=== PATIENT | female | born 1965 | race Two or more races ===

== ENCOUNTER 2023-11-02 19:44 | Inpatient (IN) | payer MEDICAID, OTHER ==
[~2023-11-02] VITALS: Ht 165.1 cm; Wt 71.9 kg
[2023-11-02 20:32] VITALS: PULSE 77; RESP 17; O2SAT 92
[2023-11-02 21:23] LABS: Basophils # (auto) 0 10 ^3/uL (0-0.2); Basophils % (auto) 0.3 % (0.0-2.0); Eosinophils # (auto) 0 10 ^3/uL (0-0.8); Eosinophils % (auto) 0.5 % (0.0-7.0); Hematocrit 42.4 % (36.0-46.0); Hemoglobin 14.2 g/dL (12.2-16.2); Lymphocytes # (auto) 1.6 10 ^3/uL (0.4-5.4); Lymphocytes % (auto) 19.8 % (10.0-50.0); Mean Corpuscular Hemoglobin 29.2 pg (28.0-32.0); Mean Corpuscular Hgb Conc. 33.6 g/dL (32.0-36.0); Mean Corpuscular Volume 87.1 fL (80.0-100.0); Monocytes # (auto) 0.6 10 ^3/uL (0-1.3); Monocytes % (auto) 6.9 % (0.0-12.0); Neutrophils # (auto) 5.9 10 ^3/uL (1.6-8.6); Neutrophils % (auto) 72.5 % (37.0-80.0); Red Blood Cells 4.87 10^6/uL (4.0-5.20); Red Cell Distribution Width 14.1 % (11.8-14.3); White Blood Cell 8.1 10^3/uL (4.4-10.8)
[2023-11-02 21:33] LABS: Alanine Aminotransferase 23 U/L (7-40); Albumin 4.8 g/dL (3.2-4.8); Alkaline Phosphatase 87 U/L (46-116); Anion Gap 10 (5-15); Aspartate Aminotransferase < 8 U/L (13-40); Bilirubin, Total 0.3 mg/dL (0.2-1.0); Blood Urea Nitrogen 18 mg/dL (9-23); Calcium 9.6 mg/dL (8.5-10.1); Carbon Dioxide 23 mmol/L (20-30); Chloride 99 mmol/L (98-107); Glucose 128 mg/dL (74-106); Sodium 132 mmol/L (136-145); Total Protein 7.4 g/dL (5.7-8.2)
[2023-11-02] MEDS ORDERED: LACTATED RINGER'S 1,000 ML IV ONE (22:00)
[2023-11-02] MEDS ORDERED: METOCLOPRAMIDE HCL 5MG/ml INJ 2ml VIAL IV ONE (22:00)
[2023-11-02] MEDS ORDERED: KETOROLAC TROMETH 30 MG/ML 1ML VIAL IV ONE (22:00)
[2023-11-02] MEDS ORDERED: METOCLOPRAMIDE HCL 5MG/ml INJ 2ml VIAL ONE (22:51)
[2023-11-02] MEDS ORDERED: KETOROLAC TROMETH 30 MG/ML 1ML VIAL ONE (22:52)
[2023-11-03 01:06] LABS: Urine Bacteria FEW /hpf (None Seen); Urine Blood Negative /uL (Negative); Urine Clarity HAZY (Clear); Urine Color Yellow (Yellow); Urine Hyaline Cast MANY /lpf (0 - 2); Urine Mucus FEW (None Seen); Urine Protein, UAD TRACE (Negative); Urine Specific Gravity 1.019 (1.001-1.035); Urine Urobilinogen Normal (Negative); Urine WBC 108 /hpf (0 - 5); Urine pH 5.5 (5.0-8.0)
[2023-11-03 01:10] VITALS: PULSE 74; RESP 18; O2SAT 96
[2023-11-03] MEDS ORDERED: PIPERACILLIN-TAZOB 3.375GM 100 ML IV ONE (01:15)
[2023-11-03] MEDS ORDERED: ALBUMIN 25% 100 ML IV ONE ×2 (01:15→03:10)
[2023-11-03] MEDS ORDERED: LACTATED RINGER'S 1,000 ML IV ONE (01:15)
[2023-11-03 07:35] VITALS: RESP 18; O2SAT 96
[2023-11-03] MEDS ORDERED: ACETAMINOPHEN 325 MG TAB PO ONE ×2 (08:45→08:55)
[2023-11-03] MEDS: SODIUM CHLORIDE 0.9% 1,000 ML IV SCH ×2 (10:00→18:20)
[2023-11-03] MEDS ORDERED: ONDANSETRON HCL 4 MG/2 ML VIAL IV PRN (10:00)
[2023-11-03] MEDS ORDERED: DOCUSATE SOD 100 MG CAP PO PRN (10:00)
[2023-11-03] MEDS ORDERED: MORPHINE SULFATE INJ 2 MG/ml SYRG IV PRN (10:00)
[2023-11-03 11:06] LABS: Creatinine, Urine 152.92 mg/dL (30.0-125.0)
[2023-11-03 15:15] LABS: Magnesium 2.1 mg/dL (1.6-2.6)
[2023-11-03 15:16] LABS: Phosphorus 3.5 mg/dL (2.4-5.1)
[2023-11-03 20:00] VITALS: PULSE 86; RESP 11; O2SAT 94
[2023-11-04] VITALS (8 sets, daily range): BP systolic 118–132; BP diastolic 62–68; PULSE 69–85; RESP 16–18; TEMP 97.3–98; O2SAT 93–100
[2023-11-04] MEDS: ACETAMINOPHEN 325 MG TAB PO PRN ×2 (01:00→14:21)
[2023-11-04] MEDS: SODIUM CHLORIDE 0.9% 1,000 ML IV SCH ×3 (03:40→19:20)
[2023-11-04] MEDS ORDERED: TELM80TA3 PO (04:20)
[2023-11-04] MEDS ORDERED: AMLO1TAB22 PO (04:20)
[2023-11-04] MEDS: LEVOTHYROXINE SODIUM 50 MCG TAB PO SCH (05:59)
[2023-11-04 06:23] LABS: Basophils # (auto) 0 10 ^3/uL (0-0.2); Basophils % (auto) 0.6 % (0.0-2.0); Eosinophils # (auto) 0.1 10 ^3/uL (0-0.8); Eosinophils % (auto) 1.8 % (0.0-7.0); Hematocrit 38.3 % (36.0-46.0); Hemoglobin 12.6 g/dL (12.2-16.2); Lymphocytes # (auto) 1.5 10 ^3/uL (0.4-5.4); Lymphocytes % (auto) 37.8 % (10.0-50.0); Mean Corpuscular Hemoglobin 28.8 pg (28.0-32.0); Mean Corpuscular Hgb Conc. 32.9 g/dL (32.0-36.0); Mean Corpuscular Volume 87.5 fL (80.0-100.0); Monocytes # (auto) 0.3 10 ^3/uL (0-1.3); Monocytes % (auto) 7.9 % (0.0-12.0); Neutrophils # (auto) 2.1 10 ^3/uL (1.6-8.6); Neutrophils % (auto) 51.9 % (37.0-80.0); Nucleated Red Blood Cells % 0.1 %; Red Blood Cells 4.38 10^6/uL (4.0-5.20); Red Cell Distribution Width 14.2 % (11.8-14.3)
[2023-11-04 06:41] LABS: Alanine Aminotransferase 15 U/L (7-40); Albumin 4.2 g/dL (3.2-4.8); Alkaline Phosphatase 65 U/L (46-116); Anion Gap 6 (5-15); Aspartate Aminotransferase 13 U/L (13-40); BUN/Creatinine Ratio 16.1 (10.0-20.0); Bilirubin, Total 0.3 mg/dL (0.2-1.0); Blood Urea Nitrogen 14 mg/dL (9-23); Calcium 8.9 mg/dL (8.7-10.4); Carbon Dioxide 24 mmol/L (20-30); Glucose 87 mg/dL (74-106); Potassium 4.5 mmol/L (3.5-5.1); Sodium 139 mmol/L (136-145); Total Protein 6.2 g/dL (5.7-8.2)
[2023-11-04 06:43] LABS: Chloride 109 mmol/L (98-107)
[2023-11-04] MEDS: ASPirin 81 mg TAB PO SCH (10:02)
[2023-11-04] MEDS: cefTRIAXone 1GM/50ML D5W 50 ML IV SCH (10:02)
[2023-11-04 10:15] LABS: LDL Cholesterol 175 mg/dL (< 100); Triglycerides 80 mg/dL (< 150)
[2023-11-04 10:16] LABS: Cholesterol 225 mg/dL (< 200); HDL Cholesterol 50 mg/dL (40-59)
[2023-11-04] MEDS: amLODIPine BESYLATE 5 MG TAB PO SCH (17:55)
[2023-11-04] MEDS: HYDROcodone-ACET 5/325MG TAB PO PRN (18:51)
[2023-11-04] MEDS ORDERED: ATORVASTATIN 20 MG TAB PO SCH (22:00)
[2023-11-05 00:46] VITALS: PULSE 85
[2023-11-05] MEDS: HYDROcodone-ACET 5/325MG TAB PO PRN (02:40)
[2023-11-05] MEDS: SODIUM CHLORIDE 0.9% 1,000 ML IV SCH ×2 (02:43→13:44)
[2023-11-05 05:00] VITALS: BP 103/49; PULSE 88; RESP 18; TEMP 97.4; O2SAT 96
[2023-11-05] MEDS: LEVOTHYROXINE SODIUM 50 MCG TAB PO SCH (06:16)
[2023-11-05 07:10] LABS: Basophils # (auto) 0 10 ^3/uL (0-0.2); Basophils % (auto) 0.7 % (0.0-2.0); Eosinophils # (auto) 0.1 10 ^3/uL (0-0.8); Eosinophils % (auto) 2.4 % (0.0-7.0); Hematocrit 38.3 % (36.0-46.0); Hemoglobin 12.6 g/dL (12.2-16.2); Lymphocytes # (auto) 1.7 10 ^3/uL (0.4-5.4); Lymphocytes % (auto) 45.9 % (10.0-50.0); Mean Corpuscular Hemoglobin 28.5 pg (28.0-32.0); Mean Corpuscular Hgb Conc. 32.8 g/dL (32.0-36.0); Mean Corpuscular Volume 86.9 fL (80.0-100.0); Monocytes # (auto) 0.3 10 ^3/uL (0-1.3); Monocytes % (auto) 7.9 % (0.0-12.0); Neutrophils # (auto) 1.6 10 ^3/uL (1.6-8.6); Neutrophils % (auto) 43.1 % (37.0-80.0); Nucleated Red Blood Cells % 0.2 %; Red Cell Distribution Width 13.8 % (11.8-14.3); White Blood Cell 3.8 10^3/uL (4.4-10.8)
[2023-11-05 07:43] LABS: Alanine Aminotransferase 13 U/L (7-40); Alkaline Phosphatase 59 U/L (46-116); Anion Gap 10 (5-15); Aspartate Aminotransferase 13 U/L (13-40); BUN/Creatinine Ratio 8.3 (10.0-20.0); Bilirubin, Total 0.3 mg/dL (0.2-1.0); Blood Urea Nitrogen 6 mg/dL (9-23); Calcium 9.2 mg/dL (8.5-10.1); Carbon Dioxide 21 mmol/L (20-30); Chloride 109 mmol/L (98-107); Glucose 81 mg/dL (74-106); Potassium 4.1 mmol/L (3.5-5.1); Sodium 140 mmol/L (136-145)
[2023-11-05 08:00] VITALS: PULSE 71; PULSE 81; RESP 16; O2SAT 93
[2023-11-05] MEDS: cefTRIAXone 1GM/50ML D5W 50 ML IV SCH (08:50)
[2023-11-05] MEDS: ASPirin 81 mg TAB PO SCH (08:56)
[2023-11-05] MEDS: amLODIPine BESYLATE 5 MG TAB PO SCH (08:57)
[2023-11-05 10:37] VITALS: BP 125/69; PULSE 81; RESP 16; TEMP 97.5; O2SAT 93
[2023-11-05] MEDS ORDERED: LEV50T PO (12:17)
[2023-11-05] MEDS ORDERED: AMLO1TAB22 PO (12:17)
[2023-11-05] MEDS ORDERED: ATO40T PO (12:17)
[2023-11-05] MEDS: ACETAMINOPHEN 325 MG TAB PO PRN (13:44)
[2023-11-07 09:33] LABS: Hepatitis B Surface Antigen Negative (Negative)
[2023-11-07 09:54] LABS: Hepatitis C Antibody Negative (Negative)
== END 2023-11-05 17:00 | disposition home health service (06) | DRG 207 ==
LOC: ER 19:44 → EDBD 19:44 → TELE 11-03 10:05 → TELE-CENTR 11-04 03:06
PROVIDERS: ADMIT Internal Medicine; ATTEND Internal Medicine
DX: I95.2 Hypotension due to drugs (principal); N17.0 Acute kidney failure with tubular necrosis; E87.1 Hypo-osmolality and hyponatremia; E78.5 Hyperlipidemia, unspecified; E86.0 Dehydration; I10 Essential (primary) hypertension; J98.11 Atelectasis; N30.00 Acute cystitis without hematuria; E03.9 Hypothyroidism, unspecified; Z90.710 Acquired absence of both cervix and uterus; R73.9 Hyperglycemia, unspecified; G43.909 Migraine, unspecified, not intractable, without status migrainosus; T46.5X5A Adverse effect of other antihypertensive drugs, initial encounter; Y92.89 Other specified places as the place of occurrence of the external cause; T50.2X5A Adverse effect of carbonic-anhydrase inhibitors, benzothiadiazides and other diuretics, initial encounter; T46.1X5A Adverse effect of calcium-channel blockers, initial encounter
CPT/HCPCS: 36415; 70450; 71045; 80053; 80061; 81001; 82570; 83735; 84100; 84300; 84439; 84443; 84484; 85025; 86803; 87086; 87340; 93005; 93306; 93886; 96361; 96365; 96375; G0378; J1885; J2543; P9047

== ENCOUNTER → 2023-11-24 | Outpatient (CLI) | payer MEDICAID ==
[~2023-11-24] MED LIST: AMLO1TAB22 PO; ATO40T PO; LEV50T PO
[2023-11-24 09:36] LABS: Basophils # (auto) 0 10 ^3/uL (0-0.2); Basophils % (auto) 0.7 % (0.0-2.0); Eosinophils # (auto) 0.1 10 ^3/uL (0-0.8); Eosinophils % (auto) 1.7 % (0.0-7.0); Hematocrit 41.1 % (36.0-46.0); Hemoglobin 13.6 g/dL (12.2-16.2); Lymphocytes # (auto) 1.5 10 ^3/uL (0.4-5.4); Lymphocytes % (auto) 40.2 % (10.0-50.0); Mean Corpuscular Hemoglobin 28.7 pg (28.0-32.0); Mean Corpuscular Hgb Conc. 33.1 g/dL (32.0-36.0); Mean Corpuscular Volume 86.9 fL (80.0-100.0); Monocytes # (auto) 0.4 10 ^3/uL (0-1.3); Monocytes % (auto) 9.5 % (0.0-12.0); Neutrophils # (auto) 1.8 10 ^3/uL (1.6-8.6); Neutrophils % (auto) 47.9 % (37.0-80.0); Red Blood Cells 4.73 10^6/uL (4.0-5.20); Red Cell Distribution Width 14.6 % (11.8-14.3); White Blood Cell 3.8 10^3/uL (4.4-10.8)
[2023-11-24 09:48] LABS: Urine Bacteria NONE SEEN /hpf (None Seen); Urine Blood Negative /uL (Negative); Urine Clarity Clear (Clear); Urine Color Colorless (Yellow); Urine Protein, UAD Negative (Negative); Urine Specific Gravity 1.014 (1.001-1.035); Urine Urobilinogen Normal (Negative); Urine WBC 2 /hpf (0 - 5); Urine pH 5.5 (5.0-8.0)
[2023-11-24 10:15] LABS: Alanine Aminotransferase 15 U/L (7-40); Albumin 4.4 g/dL (3.2-4.8); Alkaline Phosphatase 88 U/L (46-116); Anion Gap 5 (5-15); Aspartate Aminotransferase 15 U/L (13-40); BUN/Creatinine Ratio 12.8 (10.0-20.0); Blood Urea Nitrogen 11 mg/dL (9-23); Calcium 9.2 mg/dL (8.5-10.1); Carbon Dioxide 28 mmol/L (20-30); Chloride 108 mmol/L (98-107); Cholesterol 179 mg/dL (< 200); Glucose 82 mg/dL (74-106); LDL Cholesterol 115 mg/dL (< 100); Potassium 4.1 mmol/L (3.5-5.1); Sodium 141 mmol/L (136-145); Triglycerides 104 mg/dL (< 150)
[2023-11-24 10:17] LABS: Bilirubin, Total 0.4 mg/dL (0.2-1.0); HDL Cholesterol 53 mg/dL (40-59); Total Protein 6.7 g/dL (5.7-8.2)
== END | disposition home or self-care (01) ==
LOC: LAB 09:17
PROVIDERS: ATTEND Student in an Organized Health Care Education/Training Program
DX: Z12.11 Encounter for screening for malignant neoplasm of colon (principal); I10 Essential (primary) hypertension; E03.8 Other specified hypothyroidism; R73.9 Hyperglycemia, unspecified
CPT/HCPCS: 36415; 80053; 80061; 81001; 83036; 84439; 84443; 85025